=== PATIENT | male | born 1980 | race American Indian/Alaskan Native ===

== ENCOUNTER 2016-12-27 08:47 | Emergency (ER) | payer OTHER ==
[2016-12-27 09:16] LABS: Basophils % (Auto) 0.6 % (0.0-1.8); Eosinophils % (Auto) 1.8 % (0.0-4.3); Mean Corpuscular HGB Conc 36 % (32-34); Mean Corpuscular Hemoglobin 31 pg (28-32); Mean Corpuscular Volume 87 fl (84-94); Platelet Count 162 K/mm3 (140-440); Red Blood Count 5.68 M/mm3 (3.65-5.03); Red Cell Distribution Width 14.1 % (13.2-15.2); White Blood Count 9.8 K/mm3 (4.5-11.0)
[2016-12-27] MEDS ORDERED: NACL 0.9% 1000 ML 1,000 ML ONE (09:19)
[2016-12-27] MEDS ORDERED: TORADOL ONE (09:19)
[2016-12-27] MEDS ORDERED: NACL 0.9% 1000 ML 1,000 ML IV ONE (09:22)
[2016-12-27] MEDS ORDERED: TORADOL IV ONE (09:22)
[2016-12-27 09:33] LABS: Hematocrit 49.4 % (35.5-45.6); Hemoglobin 17.5 gm/dl (11.8-15.2)
[2016-12-27 09:55] LABS: Bilirubin,Urine NEG (Negative); Blood,Urine LG (Negative); Ketones,Urine NEG (Negative); Leukocyte Esterase,Urine NEG (Negative); Mucus,Urine FEW /HPF; Nitrite,Urine NEG (Negative); Urobilinogen,Urine < 2.0 mg/dL (<2.0)
[2016-12-27 09:56] LABS: RBC,Urine > 182.0 /HPF (0.0-6.0)
--- NOTE | 2016-12-27 10:14 | XRay Report ---
PA and lateral chest: Chest pain. The left hemidiaphragm is minimally elevated which in part may be due to the positioning of the patient. The lungs are clear although not well expanded. The mediastinal contour and cardiac size are unremarkable. The findings are grossly unchanged from prior study of May 16, 2015. Impressions: No acute findings.
--- NOTE | 2016-12-27 10:40 | Emergency Department Report ---
ED Abdominal Pain HPI - General Chief Complaint: Abdominal Pain Stated Complaint: POSS FOOD POISONING Time Seen by Provider: 12/27/16 10:28 Source: patient Mode of arrival: Ambulatory Limitations: No Limitations - History of Present Illness Initial Comments: 36-year-old male with no significant past medical history presents to Hospital complaining of sudden onset right-sided abdominal pain this a.m. Pain was severe rated 10/10 in intensity and constant. Unable to characterize pain. No aggravating or alleviating factors reported. Patient denies nausea, vomiting, hematuria, dysuria, or fever. Last night. Eating ham patient did experience belching and reflux symptoms that were different from the pain this morning. Severity scale (0 -10): 7 - Related Data Previous Rx's Medication Instructions Recorded Last Taken Type Ibuprofen [Motrin] 800 mg PO Q8HR PRN #30 tablet 12/27/16 Unknown Rx traMADol [Ultram 50 MG tab] 50 mg PO Q6HR PRN #20 tablet 12/27/16 Unknown Rx Allergies Allergy/AdvReac Type Severity Reaction Status Date / Time No Known Allergies Allergy Unverified 10/30/13 11:41 ED Review of Systems ROS: Stated complaint: POSS FOOD POISONING Other details as noted in HPI Comment: All other systems reviewed and negative Other: Constitutional: No fevers chills Eyes: No eye pain visual changes ENT: No ear pain or throat pain Neck: Denies pain Respiratory: Denies cough wheezing shortness of breath Cardiovascular: Denies chest pain, palpitations, syncope GI: Denies nausea, vomiting, diarrhea : Denies dysuria Musculoskeletal: Denies joint swelling Skin: Denies rash, lesions, erythema Neurologic: Denies headache, numbness, weakness Psychiatric: Denies suicidal ideation, hallucinations ED Past Medical Hx - Past Medical History Previous Medical History?: No - Surgical History Past Surgical History?: No - Social History Smoking Status: Current Every Day Smoker Substance Use Type: None - Medications Home Medications: Home Medications Medication Instructions Recorded Confirmed Last Taken Type Ibuprofen [Motrin] 800 mg PO Q8HR PRN #30 tablet 12/27/16 Unknown Rx traMADol [Ultram 50 MG tab] 50 mg PO Q6HR PRN #20 tablet 12/27/16 Unknown Rx ED Physical Exam - General Limitations: No Limitations - Other Other exam information: Examined after receiving Toradol General: No limitations, patient is alert in no acute distress Head exam: Atraumatic, normocephalic Eyes exam: Normal appearance, pupils equal reactive to light, extraocular movements intact ENT: Moist mucous membrane, normal oropharynx Neck exam: Normal inspection, full range of motion Respiratory exam: Clear to auscultation bilateral, no wheezes, rales, crackles Cardiovascular: Normal rate and rhythm, normal heart sounds Abdomen: Soft, nondistended, and nontender, with normal bowel sounds, no rebound, or guarding Extremity: Full range of motion normal inspection no deformity Back: Normal Inspection, full range of motion, no tenderness Neurologic: Alert, oriented x3, cranial nerves intact, no motor or sensory deficit Psychiatric: normal affect, normal mood Skin: Warm, dry, intact ED Course Vital Signs 12/27/16 12/27/16 12/27/16 08:51 09:03 09:29 Temperature 98.1 F Pulse Rate 94 H 91 H Respiratory 18 20 Rate Blood Pressure 141/95 O2 Sat by Pulse 100 Oximetry 12/27/16 12/27/16 12/27/16 10:01 11:06 12:01 Temperature Pulse Rate 82 76 81 Respiratory 19 11 L Rate Blood Pressure 117/66 109/65 129/63 O2 Sat by Pulse 99 100 Oximetry - Reevaluation(s) Reevaluation #1: 12/27/16 10:40 Patient received Toradol and 1 L of normal saline prior to my evaluation with improvement in symptoms ED Medical Decision Making - Lab Data Result diagrams: 12/27/16 09:02 12/27/16 09:19 Lab Results 12/27/16 12/27/16 12/27/16 Range/Units 09:02 09:02 09:15 WBC 9.8 (4.5-11.0) K/mm3 RBC 5.68 H (3.65-5.03) M/mm3 Hgb 17.5 H (11.8-15.2) gm/dl Hct 49.4 H (35.5-45.6) % MCV 87 (84-94) fl MCH 31 (28-32) pg MCHC 36 H (32-34) % RDW 14.1 (13.2-15.2) % Plt Count 162 (140-440) K/mm3 Lymph % (Auto) 24.4 (13.4-35.0) % [place] % (Auto) 13.6 H (0.0-7.3) % Eos % (Auto) 1.8 (0.0-4.3) % Baso % (Auto) 0.6 (0.0-1.8) % Lymph # 2.4 (1.2-5.4) K/mm3 [place] # 1.3 H (0.0-0.8) K/mm3 Eos # 0.2 (0.0-0.4) K/mm3 Baso # 0.1 (0.0-0.1) K/mm3 Seg Neutrophils % 59.6 (40.0-70.0) % Seg Neutrophils # 5.8 (1.8-7.7) K/mm3 Sodium (137-145) mmol/L Potassium (3.6-5.0) mmol/L Chloride (98-107) mmol/L Carbon Dioxide (22-30) mmol/L Anion Gap mmol/L BUN (9-20) mg/dL Creatinine (0.8-1.5) mg/dL Estimated GFR ml/min BUN/Creatinine Ratio % Glucose (75-100) mg/dL Lactic Acid (0.7-2.0) mmol/L Calcium (8.4-10.2) mg/dL Total Bilirubin (0.1-1.2) mg/dL Direct Bilirubin (0-0.2) mg/dL Indirect Bilirubin mg/dL AST (5-40) units/L ALT (7-56) units/L Alkaline Phosphatase (35-129) units/L Total Creatine Kinase (55-170) units/L Total Protein (6.3-8.2) g/dL Albumin (3.9-5) g/dL Albumin/Globulin Ratio % Lipase 28 (13-60) units/L Urine Color Yellow (Yellow) Urine Turbidity Clear (Clear) Urine pH 6.0 (5.0-7.0) Ur Specific [place] 1.026 (1.003-1.030) Urine Protein 30 mg/dl (Negative) mg/dL Urine Glucose (UA) Neg (Negative) mg/dL Urine Ketones Neg (Negative) mg/dL Urine Blood Lg (Negative) Urine Nitrite Neg (Negative) Urine Bilirubin Neg (Negative) Urine Urobilinogen < 2.0 (<2.0) mg/dL Ur Leukocyte Esterase Neg (Negative) Urine WBC (Auto) 2.0 (0.0-6.0) /HPF Urine RBC (Auto) > 182.0 (0.0-6.0) /HPF U Epithel Cells (Auto) < 1.0 (0-13.0) /HPF Urine Mucus Few /HPF 12/27/16 12/27/16 12/27/16 Range/Units 09:19 09:19 09:19 WBC (4.5-11.0) K/mm3 RBC (3.65-5.03) M/mm3 Hgb (11.8-15.2) gm/dl Hct (35.5-45.6) % MCV (84-94) fl MCH (28-32) pg MCHC (32-34) % RDW (13.2-15.2) % Plt Count (140-440) K/mm3 Lymph % (Auto) (13.4-35.0) % [place] % (Auto) (0.0-7.3) % Eos % (Auto) (0.0-4.3) % Baso % (Auto) (0.0-1.8) % Lymph # (1.2-5.4) K/mm3 [place] # (0.0-0.8) K/mm3 Eos # (0.0-0.4) K/mm3 Baso # (0.0-0.1) K/mm3 Seg Neutrophils % (40.0-70.0) % Seg Neutrophils # (1.8-7.7) K/mm3 Sodium 138 (137-145) mmol/L Potassium 4.0 (3.6-5.0) mmol/L Chloride 101.8 (98-107) mmol/L Carbon Dioxide 21 L (22-30) mmol/L Anion Gap 19 mmol/L BUN 15 (9-20) mg/dL Creatinine 0.9 (0.8-1.5) mg/dL Estimated GFR > 60 ml/min BUN/Creatinine Ratio 16.66 % Glucose 125 H (75-100) mg/dL Lactic Acid 2.30 H* (0.7-2.0) mmol/L Calcium 9.4 (8.4-10.2) mg/dL Total Bilirubin 0.70 (0.1-1.2) mg/dL Direct Bilirubin < 0.2 (0-0.2) mg/dL Indirect Bilirubin 0.5 mg/dL AST 21 (5-40) units/L ALT 29 (7-56) units/L Alkaline Phosphatase 61 (35-129) units/L Total Creatine Kinase 217 H (55-170) units/L Total Protein 7.4 (6.3-8.2) g/dL Albumin 4.2 (3.9-5) g/dL Albumin/Globulin Ratio 1.3 % Lipase (13-60) units/L Urine Color (Yellow) Urine Turbidity (Clear) Urine pH (5.0-7.0) Ur Specific [place] (1.003-1.030) Urine Protein (Negative) mg/dL Urine Glucose (UA) (Negative) mg/dL Urine Ketones (Negative) mg/dL Urine Blood (Negative) Urine Nitrite (Negative) Urine Bilirubin (Negative) Urine Urobilinogen (<2.0) mg/dL Ur Leukocyte Esterase (Negative) Urine WBC (Auto) (0.0-6.0) /HPF Urine RBC (Auto) (0.0-6.0) /HPF U Epithel Cells (Auto) (0-13.0) /HPF Urine Mucus /HPF - Radiology Data Radiology results: report reviewed chest X-ray: No acute findings CT abdomen and pelvis without contrast: No acute findings - Medical Decision Making Patient has no acute findings on CT. Urine is positive for blood. It is possible patient passed a kidney stone. Patient be referred to PMD and urology due to hematuria. - Differential Diagnosis renal colic, biliary colic, perforated ulcer, appendicitis Critical Care Time: No Critical care attestation.: If time is entered above; I have spent that time in minutes in the direct care of this critically ill patient, excluding procedure time. ED Disposition Clinical Impression: Right flank pain, Hematuria Disposition: DISCHARGED TO HOME OR SELFCARE Is pt being admited?: No Does the pt Need Aspirin: No Condition: Stable Instructions: Flank Pain (ED), Acute Hematuria (ED) Additional Instructions: Take the medication as prescribed. Return if symptoms worsen. Follow-up with your primary care doctor and urologist for further evaluation of the blood in her urine. Prescriptions: Ibuprofen [Motrin] 800 mg PO Q8HR PRN #30 tablet PRN Reason: Pain traMADol [Ultram 50 MG tab] 50 mg PO Q6HR PRN #20 tablet PRN Reason: Pain Referrals: MAG BRITO MD [Staff Physician] - 3-5 Days [facility] [Provider Group] - 3-5 Days (primary care clinic) JOHNNY DERAS MD [Staff Physician] - 3-5 Days (Urology ) PRIMARY CARE, [Primary Care Provider] - 3-5 Days (Primary care clinic) Forms: Work/School Release Form(ED) Time of Disposition: 14:45
--- NOTE | 2016-12-27 11:52 | Cat Scan Report ---
CT abdomen and pelvis without contrast: Right flank pain. Unenhanced transverse images are obtained from the low chest and ischium with coronal and sagittal 2-D reformatted images. The visualized lung bases are clear. The abdominal and retroperitoneal organs appear unremarkable. Specifically there is no abnormality in the right kidney. The abdominal aorta is normal in size and contour. The ureters are decompressed. The unenhanced bowel and mesentery appear normal. The appendix is visualized. Sections through the pelvis demonstrates an unremarkable bladder and prostate. A small segment of the urachus remains patent as it attaches to the bladder. The remainder is a fibrous connection to the umbilicus. Impression: No acute findings.
--- NOTE | 2016-12-27 13:26 | Admit Criteria Form ---
Admission Criteria Documentation: ABDOMINAL PAIN Clinical Indications for Admission to Inpatient Care (Place 'X' for any and all applicable criteria): Admission is indicated for ANY ONE of the following(1)(2)(3)(4)(5): [X ]I. Inpatient admission required rather than observation care (Also use Abdominal Pain: Observation Care, as appropriate) because of ANY ONE of the following: [ X]a) Severe pain requiring acute inpatient management [ ]b) Identification of etiology/finding that requires inpatient care (eg, aortic dissection, free air) [ ]c) Absent bowel sounds with complete ileus(6) [ ]d) Suspected toxic megacolon [ ]e) Severe electrolyte abnormalities requiring inpatient care [ ]f) High fever or infection requiring inpatient admission as indicated by ANY ONE of following(7)(8): [ ] i) Appropriate outpatient or observational care antimicrobial treatment unavailable, not effective, or not feasible [ ] ii) Documented bacteremia [ ] iii) Temperature > 104.9 degrees F (oral) [ ] iv) T >103.1 F (oral) or < 96.8 F(rectal) that does not respond to all emergency treatment measures [ ]g) Signs of intestinal obstruction [B] [ ]h) Hemodynamic instability [ ]i) IV fluid to replace significant ongoing losses (greater than 3 L/m2 per day) (12)(13) [ ]j) Percutaneous or open drainage (eg, abscess, biliary tract ) procedures [ ]k) Parenteral nutrition regimen that must be implemented on inpatient basis [ ]l) Other condition,treatment or monitoring requiring inpatient admission. [ ]II. Peritoneal signs present [ ]III. Surgery needed that cannot be performed on an ambulatory basis. [ ]IV. Evaluation requires patient to not eat or drink for extended period ( eg, more than 24 hours). [ ]V. Contraindications and/or Inappropriate clinical situations for Observational Care in patients with abdominal pain, when ANY ONE of the following is required: [ ]a) Thorough evaluation is required to prevent catastrophic events due to delays in diagnosing (e.g.Mesenteric ischemia) 1,3 [ ]b) Patient with severe pathology or with chronic symptoms unlikely to improve in the ED stay (3) [ ]. General contraindications and/or Inappropriate clinical situations for Observational Care in patients with abdominal pain, when ANY ONE of the following is required: [ ]a) Prediction of prolongation of LOS based on ANY ONE of the following may be considered as a contraindication for observational care 2, 3, 4, 5, 6, 7, 8, 9, 10, 11 [ ]i) Age > 65 yrs. [ ]ii) Patient arriving by ambulance [ ]iii) Patient with high acuity [ ]iv) Patient requiring vital sign monitoring [ ]v) Patient on IV medication [ ]b) Systolic blood pressures 180mmHg 3,12 [ ]c) Patient with altered mental status including delirium and other alteration of consciousness, (3) [ ]d) Patient whose discharge disposition will be to a senior care home or rehabilitation home should not be managed in Emergency Department Observation Unit. CMS rule requires 3 days hospital stay before such placement.3,13 [ ]e) Patient with failure to thrive due to broad array of etiologies 3,16,17 [ ]f) Inability to ambulate 3,14 Extended stay beyond goal length of stay may be needed for(2)(3): [ ]a) Persistent abdominal pain with suspected intra-abdominal process [ ]b) Diagnosed condition requiring continued stay (e.g., pancreatitis, complicated diverticulitis) [ ]c) Surgery (e.g., colectomy) The original [facility] content created by [employer] has been revised. The portions of the content which have been revised are identified through the use of italic text or in bold, and [facility] has neither reviewed nor approved the modified material.All other unmodified content is copyright [facility]. Please see references footnoted in the original [facility] edition 2016
[2016-12-27 13:38] LABS: Alanine Aminotransferase 29 units/L (7-56); Albumin 4.2 g/dL (3.9-5); Albumin/Globulin Ratio 1.3 %; Alkaline Phosphatase 61 units/L (35-129); Anion Gap 19 mmol/L; BUN/Creatinine Ratio 16.66; Blood Urea Nitrogen 15 mg/dL (9-20); Calcium 9.4 mg/dL (8.4-10.2); Carbon Dioxide 21 mmol/L (22-30); Chloride 101.8 mmol/L (98-107); Glucose 125 mg/dL (75-100); Sodium 138 mmol/L (137-145); Total Protein 7.4 g/dL (6.3-8.2)
[2016-12-27 13:40] LABS: Bilirubin,Direct < 0.2 mg/dL (0-0.2); Bilirubin,Indirect 0.5 mg/dL
[2016-12-27 14:42] VITALS: BP 134/72
== END 2016-12-27 15:12 | disposition home or self-care (01) ==
LOC: ED 08:47
DX: R10.30 Lower abdominal pain, unspecified (principal); R31.9 Hematuria, unspecified; F17.200 Nicotine dependence, unspecified, uncomplicated
CPT/HCPCS: 36415; 71020; 74176; 80048; 80074; 81001; 82140; 82550; 83690; 85025; 96361; 96374; 99284; J1885; J7030

== ENCOUNTER 2019-01-26 17:29 | Emergency (ER) | payer SELFPAY ==
[2019-01-26 17:38] VITALS: BP 134/82
--- NOTE | 2019-01-26 17:40 | Emergency Department Report ---
Blank Doc - Documentation Documentation: This is a 38-year-old male that presents with lower back pain s/p fall. This initial assessment/diagnostic orders/clinical plan/treatment(s) is/are subject to change based on patient's health status, clinical progression and re- assessment by fellow clinical providers in the ED. Further treatment and workup at subsequent clinical providers discretion. Patient/guardians urged not to elope from the ED as their condition may be serious if not clinically assessed and managed. Initial orders include: 1- Patient sent to [facility] for further evaluation and treatment 2- xray
--- NOTE | 2019-01-26 18:49 | XRay Report ---
PROCEDURE: XR SPINE LUMBOSACRAL 2-3V TECHNIQUE: 3 views HISTORY: pain s/p fall COMPARISONS: None FINDINGS: Vertebral alignment is normal. No fracture or subluxation. The disc spaces are maintained. IMPRESSION: No fracture or subluxation.. This document is electronically signed by Hunter Hoang MD., January 26 2019 06:47:11 PM ET
[2019-01-26] MEDS ORDERED: FLEXERIL PO ONE (19:25)
[2019-01-26] MEDS ORDERED: TORADOL IM ONE (19:25)
[2019-01-26] MEDS ORDERED: DECADRON IM ONE (19:25)
[2019-01-26] MEDS ORDERED: PERCOCET 5/325 PO ONE (19:25)
--- NOTE | 2019-01-26 20:35 | Emergency Department Report ---
ED Back Pain/Injury HPI - General Chief Complaint: Back Pain/Injury Stated Complaint: BACK PAIN Time Seen by Provider: 01/26/19 17:39 Source: patient Limitations: No Limitations - History of Present Illness Initial Comments: Patient is a 38-year-old -Swedish male with a history of chronic low back pain and sciatica who presents to the ED with acute exacerbation of his c hronic low back pain for the last 12 hours. Patient states that he stood up from bed and tried to walk but lost balance and ended up twisting his lower back, resulting in worsening low back pain. Patient states that he has tried to take anti-inflammatory medications [id number] without relief. Patient denies fall, traumatic injury, heavy lifting, numbness and tingling or weakness of lower extremities bilaterally, urinary or bowel incontinence, saddle paresthesia, dizziness, nausea, vomiting, abdominal pain, hematuria or testicular pain. MD Complaint: back pain -: Sudden, hour(s) (12), This morning Similar Symptoms Previously: Yes Place: home Radiation: none Severity: severe Severity scale (0 -10): 8 Quality: sharp, aching Consistency: constant Improves With: none Worsens With: movement, sitting upright, walking Context: turning/twisting, bending Associated Symptoms: difficulty walking. denies: confusion, weakness, chest pain, cough, difficulty urinating, diaphoresis, incontinence, fever/chills, constipation, headaches, abdominal pain, nausea/vomiting, rash, seizure, shortness of breath, syncope Treatments Prior to Arrival: NSAIDS - Related Data Previous Rx's Medication Instructions Recorded Last Taken Type Ibuprofen [Motrin] 800 mg PO Q8HR PRN #30 tablet 12/27/16 Unknown Rx traMADol [Ultram 50 MG tab] 50 mg PO Q6HR PRN #20 tablet 12/27/16 Unknown Rx Baclofen 20 mg PO Q8H PRN #21 tablet 01/26/19 Unknown Rx Ibuprofen [Motrin] 800 mg PO Q8HR PRN #21 tablet 01/26/19 Unknown Rx Prednisone [predniSONE 10 mg 10 mg PO .TAPER #21 tab.ds.pk 01/26/19 Unknown Rx (6-Day Pack, 21 Tabs)] traMADol [Ultram] 50 mg PO Q6HR PRN #15 tablet 01/26/19 Unknown Rx Allergies Allergy/AdvReac Type Severity Reaction Status Date / Time No Known Allergies Allergy Verified 01/26/19 17:39 ED Review of Systems ROS: Stated complaint: BACK PAIN Other details as noted in HPI Constitutional: denies: chills, fever Eyes: denies: eye pain, eye discharge, vision change ENT: denies: ear pain, throat pain Respiratory: denies: cough, shortness of breath, wheezing Cardiovascular: denies: chest pain, palpitations Endocrine: no symptoms reported Gastrointestinal: denies: abdominal pain, nausea, diarrhea Genitourinary: denies: urgency, dysuria Musculoskeletal: back pain, arthralgia, other (lower back pain). denies: joint swelling Skin: denies: rash, lesions Neurological: denies: headache, weakness, paresthesias Psychiatric: denies: anxiety, depression Hematological/Lymphatic: denies: easy bleeding, easy bruising ED Past Medical Hx - Past Medical History Previous Medical History?: No - Surgical History Past Surgical History?: No - Social History Smoking Status: Current Every Day Smoker Substance Use Type: Alcohol - Medications Home Medications: Home Medications Medication Instructions Recorded Confirmed Last Taken Type Ibuprofen [Motrin] 800 mg PO Q8HR PRN #30 tablet 12/27/16 Unknown Rx traMADol [Ultram 50 MG tab] 50 mg PO Q6HR PRN #20 tablet 12/27/16 Unknown Rx Baclofen 20 mg PO Q8H PRN #21 tablet 01/26/19 Unknown Rx Ibuprofen [Motrin] 800 mg PO Q8HR PRN #21 tablet 01/26/19 Unknown Rx Prednisone [predniSONE 10 mg 10 mg PO .TAPER #21 tab.ds.pk 01/26/19 Unknown Rx (6-Day Pack, 21 Tabs)] traMADol [Ultram] 50 mg PO Q6HR PRN #15 tablet 01/26/19 Unknown Rx ED Physical Exam - General Limitations: No Limitations General appearance: alert, in no apparent distress - Head Head exam: Present: atraumatic, normocephalic, normal inspection - Eye Eye exam: Present: normal appearance, PERRL, EOMI. Absent: scleral icterus, conjunctival injection, nystagmus - ENT ENT exam: Present: normal exam, normal orophraynx, mucous membranes moist, TM's normal bilaterally, normal external ear exam - Neck Neck exam: Present: normal inspection, full ROM. Absent: tenderness, lymphadenopathy - Respiratory Respiratory exam: Present: normal lung sounds bilaterally. Absent: respiratory distress, wheezes, rales, rhonchi, chest wall tenderness, accessory muscle use, decreased breath sounds, prolonged expiratory - Cardiovascular Cardiovascular Exam: Present: regular rate, normal rhythm, normal heart sounds. Absent: systolic murmur, diastolic murmur, rubs, gallop - GI/Abdominal GI/Abdominal exam: Present: soft, normal bowel sounds. Absent: tenderness, rebound, hyperactive bowel sounds - Rectal Rectal exam: Present: deferred - Extremities Exam Extremities exam: Present: normal inspection, full ROM, normal capillary refill - Back Exam Back exam: Present: normal inspection, tenderness (Palpable lumbosacral paraspinal and musculoskeletal tenderness) - Neurological Exam Neurological exam: Present: alert, oriented X3, CN II-XII intact, normal gait, reflexes normal - Psychiatric Psychiatric exam: Present: normal affect, normal mood - Skin Skin exam: Present: warm, dry, intact, normal color. Absent: rash ED Course Vital Signs 01/26/19 17:35 Temperature 98 F Pulse Rate 81 Respiratory 18 Rate Blood Pressure 134/82 O2 Sat by Pulse 100 Oximetry - Reevaluation(s) Reevaluation #1: 01/26/19 20:36 Patient is alert and oriented 3 and is not in distress. The L-spine x-ray shows no acute fractures or subluxations. Patient was treated for pain in the ED and on reevaluation, patient's pain is well controlled and was discharged home on pain medications and muscle relaxants, patient was advised to follow up at the [facility] for further evaluation 5-7 days. Patient was advised to return to the ED immediately if symptoms get worse. ED Medical Decision Making - Radiology Data Radiology results: report reviewed, image reviewed L-spine x-ray: No acute fractures or subluxations - Medical Decision Making Patient is alert and oriented 3 and is not in distress. The L-spine x-ray shows no acute fractures or subluxations. Patient was treated for pain in the ED and on reevaluation, patient's pain is well controlled and was discharged home on pain medications and muscle relaxants, patient was advised to follow up at the [facility] for further evaluation 5-7 days. Patient was advised to return to the ED immediately if symptoms get worse. - Differential Diagnosis Chronic low back pain; Muscle spasm of lower back Critical care attestation.: If time is entered above; I have spent that time in minutes in the direct care of this critically ill patient, excluding procedure time. ED Disposition Clinical Impression: Acute exacerbation of chronic low back pain, Spasm of muscle of lower back Disposition: TO HOME OR SELFCARE Is pt being admited?: No Does the pt Need Aspirin: No Condition: Stable Instructions: Chronic Back Pain (ED), Muscle Spasm (ED) Additional Instructions: Take medications with food, drink plenty of fluids and follow up with your primary care physician as advised. Return to the ED immediately if symptoms get worse. Prescriptions: Baclofen 20 mg PO Q8H PRN #21 tablet PRN Reason: Spasms Ibuprofen [Motrin] 800 mg PO Q8HR PRN #21 tablet PRN Reason: Pain , Severe (7-10) Prednisone [predniSONE 10 mg (6-Day Pack, 21 Tabs)] 10 mg PO .TAPER #21 tab.ds.pk traMADol [Ultram] 50 mg PO Q6HR PRN #15 tablet PRN Reason: Pain Referrals: JOSEFINA MIRAMONTESBIOLA MD RALF [Primary Care Provider] - 3-5 Days Forms: Work/School Release Form(ED) Time of Disposition: 20:40 Print Language: KOREAN
== END 2019-01-26 20:46 | disposition home or self-care (01) ==
LOC: ED 17:29
DX: G89.29 Other chronic pain (principal); M62.830 Muscle spasm of back; F17.200 Nicotine dependence, unspecified, uncomplicated
CPT/HCPCS: 72100; 96372; 99283; J1100; J1885